=== PATIENT | male | born 1965 | race Caucasian/White ===

== ENCOUNTER 2016-10-14 09:40 | Day surgery (SDC) | payer OTHER ==
[2016-10-14 09:26] VITALS: BMI 25.8
[2016-10-14] MEDS ORDERED: PROPOFOL 20 ML ONE ×2 (10:28)
[2016-10-14] MEDS ORDERED: LIDOCAINE HCL/PF 2% SDV 5ML VIAL ONE (10:28)
[2016-10-14 11:07] VITALS: TEMP 98.1
[2016-10-14 12:05] VITALS: BP 123/83; PULSE 53
--- NOTE | 2016-10-16 15:04 | PATH ---
Surgical Pathology Report Patient Name: [facility]. Rec. #: [id number] /Age/Gender: 1965 (Age: 50) / M Account: [id number] Location: [facility]-ENDOSCOPY Taken: 10/14/2016 Received: 10/14/2016 Reported: 10/16/2016 Physicians: Rivas Young M.D. Specimen(s) Received A: BX GASTRIC SLEEVE REMNANT B: BX DISTAL ESOPHAGUS C: BX NODULES IN ILEUM Clinical History Colon screening, nausea/vomiting, GERD status post bariatric surgery Esophagitis grade 3, status post gastric sleeve, chronic constipation, redundant colon, nodules in terminal ileum Final Diagnosis A. DESIGNATED GASTRIC SLEEVE REMNANT, BIOPSY: SQUAMOUS EPITHELIUM WITH PAPILLOMATOSIS SUGGESTIVE OF REFLUX ESOPHAGITIS. NO INTESTINAL METAPLASIA IDENTIFIED (NO BAE'S IDENTIFIED). B. DESIGNATED DISTAL ESOPHAGUS, BIOPSY: GASTRIC MUCOSA WITH NO PATHOLOGIC CHANGES. NO INTESTINAL METAPLASIA IDENTIFIED (NO BAE'S IDENTIFIED). IMMUNOSTAIN FOR H. PYLORI IS NEGATIVE. C. ILEUM, BIOPSY: SMALL INTESTINAL MUCOSA WITH FOLLICULAR HYPERPLASIA OF MUCOSA ASSOCIATED LYMPHOID TISSUE. NO ACTIVE INFLAMMATION IDENTIFIED. Comment: The findings may indicate some form of antigenic stimulation to the GI tract. Electronically Signed Jovon Arvizu M.D. Gross Description A. Received in formalin, labeled "biopsy gastric sleeve remnant" are 2 m[place], irregular portions of soft tissue measuring 0.1 and 0.2 cm. in greatest dimension. The specimens are submitted in toto in one cassette. B. Received in formalin, labeled "biopsy distal esophagus" is a mendenhall, irregular portion of soft tissue measuring 0.2 cm. in greatest dimension. The specimen is submitted in toto in one cassette. C. Received in formalin, labeled "biopsy nodules in ileum" is a mendenhall, irregular portion of soft tissue measuring 0.2 cm. in greatest dimension. The specimen is submitted in toto in one cassette. 10/15/2016 saudi10/15/2016
== END 2016-10-14 12:20 | disposition home or self-care (01) ==
LOC: JASU-ENDO 09:40
PROVIDERS: ATTEND Internal Medicine Gastroenterology
PROC: 0DB98ZX Excision of Duodenum, Via Natural or Artificial Opening Endoscopic, Diagnostic (ICD-10-PCS; 2016-10-14)
PROC: 0DB68ZX Excision of Stomach, Via Natural or Artificial Opening Endoscopic, Diagnostic (ICD-10-PCS; 2016-10-14)
PROC: 0DB38ZX Excision of Lower Esophagus, Via Natural or Artificial Opening Endoscopic, Diagnostic (ICD-10-PCS; 2016-10-14)
PROC: 0DBB8ZX Excision of Ileum, Via Natural or Artificial Opening Endoscopic, Diagnostic (ICD-10-PCS; principal; 2016-10-14 10:30)
DX: Z12.11 Encounter for screening for malignant neoplasm of colon (principal); K63.5 Polyp of colon; K64.8 Other hemorrhoids; K21.0 Gastro-esophageal reflux disease with esophagitis
CPT/HCPCS: 88305-TC; 88342-TC